=== PATIENT | male | born 1995 | race Hispanic/Latino ===

== ENCOUNTER 2017-10-15 14:18 | Emergency (ER) | payer OTHER ==
[2017-10-15 14:31] VITALS: RESP 18; O2SAT 99
--- NOTE | 2017-10-15 14:35 | ED PDOC ---
Arrival/HPI - General Time Seen by Provider: 10/15/17 14:28 Historian: Patient - History of Present Illness Narrative History of Present Illness (Text): 10/15/17 14:38 A 22 year old male, with no significant past medical history, presents to the emergency department complaining of central chest tightness for 2-3 days. Patient has not taken anything for pain and is concerned due to it being persistent continuous symptom. Patient states he smokes marijuana daily but no tobacco, and occasionally consumes alcohol. Patient denies any shortness of breath, cough, palpitations, or any other complaints at this time. Also, patient denies any past surgeries and has no known allergies. No PMD Past Medical History - Provider Review Nursing Documentation Reviewed: Yes Family/Social History - Physician Review Nursing Documentation Reviewed: Yes Family/Social History: No Known Family HX Allergies/Home Meds Allergies/Adverse Reactions: Allergies No Known Allergies Allergy (Verified 10/15/17 14:31) Review of Systems - Physician Review All systems were reviewed & negative as marked: Yes - Review of Systems Constitutional: absent: Fevers, Night Sweats Respiratory: absent: SOB, Cough Cardiovascular: Chest Pain (chest tightness). absent: Palpitations Gastrointestinal: absent: Abdominal Pain, Diarrhea, Nausea, Vomiting Neurological: absent: Headache, Dizziness Physical Exam Vital Signs Reviewed: Yes Vital Signs Temp Pulse Resp BP Pulse Ox 10/15/17 16:32 97.8 F 62 18 131/74 99 10/15/17 14:29 97.5 F L 71 18 139/81 99 10/15/17 14:18 97.5 F L 75 18 139/81 99 Temperature: Afebrile Blood Pressure: Normal Pulse: Regular Respiratory Rate: Normal Appearance: Positive for: Well-Appearing Pain Distress: None Mental Status: Positive for: Alert and Oriented X 3 - Systems Exam Head: Present: Atraumatic, Normocephalic Pupils: Present: PERRL Extroacular Muscles: Present: EOMI Conjunctiva: Present: Normal Mouth: Present: Moist Mucous Membranes Neck: Present: Normal Range of Motion Respiratory/Chest: Present: Clear to Auscultation, Good Air Exchange. No: Respiratory Distress, Accessory Muscle Use Cardiovascular: Present: Regular Rate and Rhythm, Normal S1, S2. No: Murmurs Abdomen: No: Tenderness, Distention, Peritoneal Signs Back: Present: Normal Inspection Upper Extremity: Present: Normal Inspection. No: Cyanosis, Edema Lower Extremity: Present: Normal Inspection. No: Edema Neurological: Present: GCS=15, CN II-XII Intact, Speech Normal Skin: Present: Warm, Dry, Normal Color. No: Rashes Psychiatric: Present: Alert, Oriented x 3, Normal Insight, Normal Concentration Medical Decision Making ED Course and Treatment: 10/15/17 14:40 Impression: 22 year old male with central chest tightness. No acute findings on physical exam. Plan: -- EKG -- Chest X-ray -- Labs -- Maalox -- Elixir -- Lidocaine 2% Viscous -- IV Fluids -- Reassess and disposition Progress Notes: EKG: Ordered, reviewed, and independently interpreted the EKG. Rate : 59 BPM Rhythm : Sinus bradycardia. Interpretation : No ST-segment elevations or depressions, no T-wave inversions, normal intervals. Comparison : No previous EKG for comparison. 10/15/2017 15:26 Chest X-ray IMPRESSION: No active disease. No evidence of pneumothorax. Dictator: Rowdy Patel MD - Lab Interpretations Lab Results: 10/15/17 15:15 10/15/17 15:15 Lab Results 10/15/17 15:15: Sodium 141, Potassium 4.2, Chloride 103, Carbon Dioxide 28, Anion Gap 15, BUN 16, Creatinine 0.9, Est GFR ( Amer) > 60, Est GFR (Non- Af Amer) > 60, Random Glucose 84, Calcium 9.5, Total Bilirubin 0.7, AST 22, ALT 27, Alkaline Phosphatase 57, Lactate Dehydrogenase 374, Total Creatine Kinase 99 , Troponin I < 0.01, Total Protein 7.8, Albumin 4.6, Globulin 3.2, Albumin/ Globulin Ratio 1.4, Lipase 23 10/15/17 15:15: PT 12.5, INR 1.09 H, D-Dimer, Quantitative < 200 10/15/17 15:15: WBC 10.2, RBC 4.81, Hgb 14.6, Hct 42.3, MCV 87.9, MCH 30.4, MCHC 34.5, RDW 12.7, Plt Count 208, MPV 9.6, Gran % 75.2 H, Lymph % (Auto) 15.3 L, Cataño % (Auto) 8.3 H, Eos % (Auto) 1.0 L, Baso % (Auto) 0.2, Gran # 7.65 H, Lymph # (Auto) 1.6, Cata[place] # (Auto) 0.9 H, Eos # (Auto) 0.1, Baso # (Auto) 0.02 I have reviewed the lab results: Yes - RAD Interpretation Radiology Orders: 10/15/17 14:45 CHEST TWO VIEWS (PA/LAT) [RAD] Stat CHEST SPECIAL VIEW [RAD] Stat - Medication Orders Current Medication Orders: Famotidine (Pepcid) 40 mg PO STAT STA Stop: 10/15/17 16:38 Discontinued Medications Al Hydrox/Mg Hydrox/Simethicone (Maalox Plus 30 Ml) 30 ml PO STAT STA Stop: 10/15/17 14:46 Belladonna/Phenobarbital ( Elixir) 5 ml PO STAT STA Stop: 10/15/17 14:46 Last Admin: 10/15/17 15:09 Dose: 5 ml Sodium Chloride (Sodium Chloride 0.9%) 1,000 mls @ 999 mls/hr IV .Q1H1M STA Stop: 10/15/17 15:45 Last Admin: 10/15/17 15:07 Dose: 999 mls/hr eMAR Start Stop Document 10/15/17 15:07 SRE (Rec: 10/15/17 15:08 SRE [id number]) Intravenous Solution Start Date 10/15/17 Start Time 15:08 End Date 10/15/17 End time 16:10 Total Infusion Time 62 Lidocaine HCl (Lidocaine 2% Viscous) 15 ml MM STAT STA Stop: 10/15/17 14:46 Last Admin: 10/15/17 15:08 Dose: 15 ml - Scribe Statement The provider has reviewed the documentation as recorded by the Darrell Shrestha Provider Scribe Attestation: All medical record entries made by the Mauriceibnegrita were at my direction and personally dictated by me. I have reviewed the chart and agree that the record accurately reflects my personal performance of the history, physical exam, medical decision making, and the department course for this patient. I have also personally directed, reviewed, and agree with the discharge instructions and disposition. Disposition/Present on Arrival - Present on Arrival Any Indicators Present on Arrival: No History of DVT/PE: No History of Uncontrolled Diabetes: No Urinary Catheter: No History of Decub. Ulcer: No History Surgical Site Infection Following: None - Disposition Have Diagnosis and Disposition been Completed?: Yes Diagnosis: Odynophagia, Esophagitis Disposition: HOME/ ROUTINE Disposition Time: 16:39 Patient Plan: Discharge Condition: GOOD Discharge Instructions (ExitCare): Acid Reflux (Gastroesophageal Reflux Disease ), Adult (DC) Additional Instructions: Brice - All of your tests here today are normal. Your next step is to see a product info specialist so that you can have endoscopy done. Call Dr. Campbell's office tomorrow morning to get the next available appointment. Return to us if any problems. Pepcid is twice a day and Protonix is each night before bed. No Caffine, No Chocolate, No Carbonation, No [place] or Fried Foods, Nothing to eat for two hours before laying down for bed. Best- Dr. Charly Calvert Referrals: Job Campbell MD [Staff Provider] - Follow up with primary Forms: SCHOOL NOTE, WORK NOTE
[2017-10-15] MEDS ORDERED: Atrop/Hyosc/Scopal/PB Elixir (120 ml) PO STA (14:45)
[2017-10-15] MEDS ORDERED: Alum-Mag Hydrox-Simethicone Susp (30 mL) PO STA (14:45)
[2017-10-15] MEDS ORDERED: Sodium Chloride 0.9% 1,000 ML IV STA (14:45)
[2017-10-15 15:27] LABS: BASO # 0.02 K/mm3 (0.0-2.0); BASO % 0.2 % (0.0-3.0); EOS # 0.1 (0.0-0.7); GRAN # 7.65 (1.4-6.5); GRAN % 75.2 % (50.0-68.0); HEMOGLOBIN 14.6 g/dL (14.0-18.0); LYMPH # 1.6 (1.2-3.4); LYMPH % 15.3 % (22.0-35.0); MEAN CELL VOLUME 87.9 fl (80.0-105.0); MEAN CORPUSCULAR HEMOGLOBIN 30.4 pg (25.0-35.0); MEAN CORPUSCULAR HGB CONC 34.5 g/dl (31.0-37.0); MEAN PLATELET VOLUME 9.6 fl (7.0-11.0); MONO # 0.9 (0.1-0.6); MONO % 8.3 % (1.0-6.0); RBC 4.81 10^6/uL (3.5-6.1); RED CELL DISTRIBUTION WIDTH 12.7 % (11.5-14.5); WHITE BLOOD COUNT 10.2 10^3/ul (4.5-11.0)
--- NOTE | 2017-10-15 15:28 | RAD ---
PROCEDURE: CHEST RADIOGRAPH, 1 VIEW HISTORY: chest pain EXPIRATORY VIEW, r/o PNEUMOTHORAX COMPARISON: None available. FINDINGS: LUNGS: Clear. PLEURA: No pneumothorax or pleural fluid seen. CARDIOVASCULAR: Normal. OSSEOUS STRUCTURES: No significant abnormalities. VISUALIZED UPPER ABDOMEN: Normal. OTHER FINDINGS: None. IMPRESSION: No active disease. No evidence of pneumothorax
--- NOTE | 2017-10-15 15:29 | RAD ---
HISTORY: ? Pneumothorax, ?Pneumomediastinum CP w Swallowing COMPARISON: No prior. TECHNIQUE: Chest PA and lateral FINDINGS: LUNGS: No active pulmonary disease. PLEURA: No significant pleural effusion identified. No pneumothorax apparent. CARDIOVASCULAR: Normal. OSSEOUS STRUCTURES: No significant abnormalities. VISUALIZED UPPER ABDOMEN: Normal. OTHER FINDINGS: None. IMPRESSION: No active disease.
[2017-10-15 15:33] LABS: PROTHROMBIN TIME 12.5 SECONDS (9.4-12.5)
[2017-10-15 15:34] LABS: INR 1.09 (0.93-1.08)
[2017-10-15 15:40] LABS: ALB/GLOB RATIO 1.4 (1.1-1.8); ALBUMIN 4.6 g/dL (3.0-4.8); ALT/SGPT 27 U/L (7-56); AST/SGOT 22 U/L (17-59); BLOOD UREA NITROGEN 16 mg/dL (7-21); CALCIUM 9.5 mg/dL (8.4-10.5); GFR AFRICAN-AMERICAN > 60; GFR NON-AFRICAN AMERICAN > 60; LIPASE 23 U/L (23-300)
[2017-10-15 15:49] LABS: TROPONIN I < 0.01 ng/mL
[2017-10-15 16:02] LABS: D DIMER < 200 ng/mL (0-243)
[2017-10-15 16:34] VITALS: BP 131/74; PULSE 62; TEMP 97.8
[2017-10-15] MEDS ORDERED: Pantoprazole 40 mg EC Tab PO STA (16:37)
--- NOTE | 2017-10-16 09:56 | CARD ---
APPROVED REPORT EKG Measurement Heart [id number] [place] [id number] <Conclusion> Sinus bradycardia Normal ECG
== END 2017-10-15 16:55 | disposition home or self-care (01) ==
LOC: MERGE 14:18 → ED 14:18
DX: K20.9 Esophagitis, unspecified (principal); R13.10 Dysphagia, unspecified
CPT/HCPCS: 71045; 71046; 80053; 82550; 83615; 83690; 84484; 85025; 85378; 85610; 93005; 96360; 99283; J7030